=== PATIENT | female | born 1935 | race Hispanic/Latino ===

== ENCOUNTER 2025-02-22 10:26 | Emergency (ER) | payer MEDICARE ==
[~2025-02-22] VITALS: Ht 154.9 cm; Wt 59.0 kg
[2025-02-22 12:26] LABS: BASOPHILS # (AUTO) 0.03 K/uL (0.00-0.20); BASOPHILS % (AUTO) 0.4 % (0.0-5.0); EOSINOPHILS # (AUTO) 0.12 K/uL (0.00-0.70); EOSINOPHILS % (AUTO) 1.7 % (0.0-8.0); HEMATOCRIT 34.6 % (36-48); IMMATURE GRANULOCYTE ABSOLUTE 0.02 K/uL (0-1); LYMPHOCYTES # (AUTO) 1.5 K/uL (1.0-4.8); LYMPHOCYTES % (AUTO) 21.1 % (21.0-51.0); MEAN CORPUSCULAR HEMOGLOBIN 30.4 pg (27.0-33.0); MEAN CORPUSCULAR HGB CONC 32.9 g/dL (32.0-36.0); MEAN CORPUSCULAR VOLUME 92.3 fL (79-99); MONOCYTES # (AUTO) 0.7 K/uL (0.1-1.0); NEUTROPHILS # (AUTO) 4.7 K/uL (1.8-7.7); NEUTROPHILS % (AUTO) 66.5 % (40.0-77.0); PLATELET COUNT (AUTO) 153 K/uL (130-400); RED BLOOD CELL COUNT(AUTO) 3.75 MIL/uL (4.00-5.50); RED CELL DISTRIBUTION WIDTH 13.3 % (11.0-15.5); WHITE BLOOD COUNT (AUTO) 7.1 K/uL (4.8-10.8)
--- NOTE | 2025-02-22 12:35 | ERN ---
ED Note History of Present Illness Stated Complaint: ANXIETY UNABLE TO SLEEP FOR 3 DAYS Chief Complaint: Anxiety/Panic Attack Time Seen by MD: 11:29 Dictation: 89-year-old female presents to the ED for evaluation of insomnia for the past three days. Patient reports anxiety, headache, body aches and generalized itchiness, but denies any chest pain, shortness of breath or any other associ ated symptoms at the time. Patient states she lives alone and has been experiencing itchiness throughout her body stating she "feels stand on her skin. Allergies: Coded Allergies: Penicillins (Unverified Allergy, Unknown, 02/22/25) Home Meds Active Scripts Hydroxyzine HCl (Hydroxyzine HCl) 10 Mg Tablet, 1 TAB PO DAILY for anxiety for 10 Days, #10 TAB 0 Refills Prov:JONNY FLORES MD 02/22/25 Past Medical History Past Medical History: Anxiety, Other Surgical History: Other Review of System Dictation Constitutional: Positive for body aches Negative for fever,chills, and weight loss Eyes: Negative for injury, pain,redness, and discharge ENT: Negative for injury,pain or swelling Cardiovascular: Negative for chest pain, palpitations, and edema Respiratory: Negative for shortness of breath, cough, and wheezing, Abdomen/GI: Negative for abdominal pain, nausea, vomiting, diarrhea, and constipation Back: Negative for injury and pain : Negative for injury, bleeding and discharge MS/Extremity: Negative for injury and deformity Skin: Positive for itchiness Negative for rash, and discoloration Neuro: Positive for headache weakness, numbness, tingling, and seizure Psych: Negative for suicide ideation, homicidal ideation, and hallucinations Initial Vital Sign VS Vital Signs Date Time Temp Pulse Resp B/P (MAP) Pulse Ox O2 Delivery O2 Flow Rate FiO2 02/22/25 10:55 97.9 66 20 133/72 99 02/22/25 12:44 Room Air* 0 21 Physical Exam Dictation General: awake, alert, NAD Head/Face: Normocephalic, atraumatic Eyes: PERRL, EOMI, vision at baseline ENT: oral cavity clear, TMs clear, no signs of infection Neck: Trachea midline, supple, no nuchal rigidity Cardiovascular: RRR, normal S1/S2, No MRGs, no JVD Respiratory: CTAB, no respiratory distress, No rales or wheezes Abdomen: Soft, non-tender, non-distended, normal bowel sounds, no guarding or rebound. Skin: Warm, dry, small excoriations MS/Extremity: Pulses equal, no cyanosis, neurovascular intact, FROM Neuro: COAx4, GCS 15, strength 5/5, CN 2-12 intact, normal cerebellar exam, normal gait, Psych: Normal behavior, mood, and affect normal Results (Laboratory/Radiology) Laboratory/Radiology Laboratory Tests Test 02/22/25 12:13 White Blood Count 7.1 K/uL (4.8-10.8) Red Blood Count 3.75 MIL/uL (4.00-5.50) L Hemoglobin 11.4 g/dL (12.0-16.0) L Hematocrit 34.6 % (36-48) L Mean Corpuscular Volume 92.3 fL (79-99) Mean Corpuscular Hemoglobin 30.4 pg (27.0-33.0) Mean Corpuscular Hemoglobin Concent 32.9 g/dL (32.0-36.0) Red Cell Distribution Width 13.3 % (11.0-15.5) Platelet Count 153 K/uL (130-400) Mean Platelet Volume 10.6 fL (7.5-10.5) H Immature Granulocyte % (Auto) 0.3 % (0-1) Neutrophils (%) (Auto) 66.5 % (40.0-77.0) Lymphocytes (%) (Auto) 21.1 % (21.0-51.0) Monocytes (%) (Auto) 10.0 % (3.0-13.0) Eosinophils (%) (Auto) 1.7 % (0.0-8.0) Basophils (%) (Auto) 0.4 % (0.0-5.0) Neutrophils # (Auto) 4.7 K/uL (1.8-7.7) Lymphocytes # (Auto) 1.5 K/uL (1.0-4.8) Monocytes # (Auto) 0.7 K/uL (0.1-1.0) Eosinophils # (Auto) 0.12 K/uL (0.00-0.70) Basophils # (Auto) 0.03 K/uL (0.00-0.20) Absolute Immature Granulocyte (auto 0.02 K/uL (0-1) Nucleated Red Blood Cells 0.0 % (0.0-0.19) Sodium Level 138 mmol/L (136-145) Potassium Level 4.4 mmol/L (3.5-5.1) Chloride Level 105 mmol/L (101-111) Carbon Dioxide Level 25 mmol/L (21-32) Blood Urea Nitrogen 27 mg/dL (7-18) H Creatinine 1.6 mg/dL (0.5-1.0) H Glomerular Filtration Rate Calc 31 mL/min (>90) Random Glucose 113 mg/dL (70-105) H Total Calcium 8.6 mg/dL (8.5-10.1) Total Bilirubin 0.3 mg/dL (0.2-1.0) Direct Bilirubin 0.1 mg/dL (0.0-0.3) Aspartate Amino Transf (AST/SGOT) 22 U/L (10-37) Alanine Aminotransferase (ALT/SGPT) 9 U/L (12-78) L Alkaline Phosphatase 66 U/L (50-136) Troponin I High Sensitivity 9 ng/L (4-50) Total Protein 7.2 g/dL (6.0-8.3) Albumin 3.7 g/dL (3.5-5.0) Labs Reviewed?: Yes EKG Comment: EKG 02/22/2025 time 12:34 p.m. ventricular rate 56, CT 145, QRS D 90, QT 489. Sinus rhythm, No STEMI ED Course ED Course Orders Procedure Category Date Status Time 12 Lead Ekg Tracing- EKG 02/22/25 Complete Technical 11:29 Cbc With Differential LAB 02/22/25 Complete 11:29 Basic Metabolic Panel LAB 02/22/25 Complete 11:29 Troponin I High LAB 02/22/25 Complete Sensitivity 11:29 Hepatic Function Panel LAB 02/22/25 Complete 12:13 Alprazolam 0.25mg PHA 02/22/25 Complete (Xanax 0.25mg) 14:00 Hydroxyzine 10mg Tab PHA 02/22/25 Complete (Atarax 10mg Tab) 14:00 Current Medications Medications (Trade) Dose Ordered Sig/Jose Route PRN Reason Start Time Stop Time Status Last Admin Dose Admin Alprazolam (XANax 0.25MG) 0.25 mg ONCE ONCE PO 02/22/25 14:00 02/22/25 14:01 DC 02/22/25 13:54 Hydroxyzine HCl (ATArax 10MG TAB) 10 mg ONCE ONCE PO 02/22/25 14:00 02/22/25 14:01 DC 02/22/25 13:54 Vital Signs Date Time Temp Pulse Resp B/P (MAP) Pulse Ox O2 Delivery O2 Flow Rate FiO2 02/22/25 12:44 97.9 66 20 133/72 99 Room Air* 0 21 02/22/25 10:55 97.9 66 20 133/72 99 Medical Decision Making MDM MDM: Differential diagnosis: Anxiety, insomnia Risk of complication and/or morbidity or mortality of patient management: None Medications-Per medication reconciliation Need for hospitalization: Patient does not meet criteria for hospitalization. Need for emergency major/minor surgery: No There are no social concerns with this patient. I independently interpreted the test that were performed, results were reviewed by me and considered findings on radiology if ordered. Medical management and examination interpretation discussions were had by me with other qualified healthcare professionals as indicated for the patient's care. DX & DISP Disposition: Discharge Departure Impression: Primary Impression: Anxiety Additional Impression: Insomnia Condition: Stable Scripts Hydroxyzine HCl (Hydroxyzine HCl) 10 Mg Tablet 1 TAB PO DAILY for anxiety for 10 Days, #10 TAB 0 Refills Prov: JONNY FLORES MD 02/22/25 JONNY FLORES MD Feb 22, 2025 12:35
--- NOTE | 2025-02-22 12:35 | EKG ---
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
[2025-02-22 12:44] VITALS: BP 133/72; PULSE 66; RESP 20; TEMP 97.9; O2SAT 99
[2025-02-22 12:47] LABS: ALBUMIN 3.7 g/dL (3.5-5.0); BILIRUBIN,DIRECT 0.1 mg/dL (0.0-0.3); BILIRUBIN,TOTAL 0.3 mg/dL (0.2-1.0); CREATININE 1.6 mg/dL (0.5-1.0); POTASSIUM 4.4 mmol/L (3.5-5.1); TOTAL PROTEIN, SERUM 7.2 g/dL (6.0-8.3)
[2025-02-22] MEDS: hydrOXYzine 10 MG TABLET PO ONE (13:54)
[2025-02-22] MEDS: ALPRAZolam 0.25 MG TABLET PO ONE (13:54)
[2025-02-22] MEDS ORDERED: HYDR-3830 PO (14:10)
== END 2025-02-22 14:14 | disposition home or self-care (01) ==
LOC: EDH 10:26
DX: F41.9 Anxiety disorder, unspecified (principal); G47.00 Insomnia, unspecified; Z88.0 Allergy status to penicillin
CPT/HCPCS: 36415; 80048; 80076; 84484; 85025; 93005; 99284